=== PATIENT | male | born 1990 | race African-American/Black ===

== ENCOUNTER 2021-08-31 22:46 | Emergency (ER) | payer SELFPAY ==
[~2021-08-31] VITALS: Ht 188 cm; Wt 95.3 kg
--- NOTE | 2021-08-31 23:05 | NUR ---
PT BIBSELF FROM HOME C/O 910 HEADACHE, NECK, AND LOWER BACK PAIN X2 WEEKS. NO TRAUMA REPORTED. PT A/OX3. TOLERATING R/A WELL WITH NO SOB.
--- NOTE | 2021-08-31 23:22 | NUR ---
PT SEEN BY DR. REED
--- NOTE | 2021-08-31 23:38 | NUR ---
LAC #20G S/L; PATENT AND INTACT.
--- NOTE | 2021-09-01 00:21 | NUR ---
PT RETURNED TO ER BED [address]
[2021-09-01 00:28] LABS: BILIRUBIN,URINE NEGATIVE (NEGATIVE); COLOR,URINE YELLOW (YELLOW); LEUKOCYTE ESTERASE ,URINE NEGATIVE (NEGATIVE); NITRITE, URINE NEGATIVE (NEGATIVE); PH,URINE 6.5 (5.0-8.0); PROTEIN,URINE NEGATIVE (NEGATIVE); UGLUCOSE NEGATIVE (NEGATIVE)
[2021-09-01 00:35] LABS: BASOPHILS % (AUTO) 0.3 % (0.0-2.0); EOSINOPHILS % (AUTO) 1.4 % (0.0-6.0); HEMATOCRIT 42 % (39-51); HEMOGLOBIN 13.9 g/dL (13.5-17.5); LYMPHOCYTES # (AUTO) 1.7 K/uL (0.8-4.8); LYMPHOCYTES % (AUTO) 29.3 % (20.0-44.0); MEAN CORPUSCULAR HGB CONC 33 g/dl (31.0-36.0); MEAN CORPUSCULAR VOLUME 86 fL (80-96); MONOCYTES # (AUTO) 0.5 K/uL (0.1-1.30); MONOCYTES % (AUTO) 8.3 % (2.0-12.0); NEUTROPHILS # (AUTO) 3.6 K/uL (1.8-8.9); NEUTROPHILS % (AUTO) 60.7 % (43.0-81.0); PLATELET COUNT (AUTO) 303 K/uL (150-450); RED BLOOD CELL COUNT(AUTO) 4.83 MIL/uL (4.5-6.0)
[2021-09-01 00:45] LABS: SERUM AMMONIA 36 umol/L (11-32)
[2021-09-01 00:50] LABS: CALCIUM, SERUM 8.5 mg/dL (8.5-10.1); CARBON DIOXIDE 28 mmol/L (21-32); CHLORIDE 100 mmol/L (98-107); GLUCOSE 90 mg/dL (74-106); POTASSIUM 3.8 mmol/L (3.5-5.1); SODIUM SERUM 136 mmol/L (136-145); UREA NITROGEN, BLOOD 13 mg/dL (7-18)
[2021-09-01 00:58] LABS: ALANINE AMINOTRANSFERASE 34 U/L (12-78); ALBUMIN 3.8 g/dL (3.4-5.0); ALKALINE PHOSPHATASE 90 U/L (46-116); ASPARTATE AMINOTRANSFERASE 34 U/L (15-37); BILIRUBIN,DIRECT 0.1 mg/dL (0.0-0.2); BILIRUBIN,TOTAL 0.5 mg/dL (0.2-1.0); TOTAL PROTEIN, SERUM 7.9 g/dL (6.4-8.2)
[2021-09-01 01:06] LABS: ACETAMINOPHEN 0 ug/ml (10-30); ALCOHOL, BLOOD < 3 mg/dL (0-0)
[2021-09-01 01:37] LABS: THYROID STIMULATING HORMONE 0.967 uIU/mL (0.358-3.74)
--- NOTE | 2021-09-01 03:52 | NUR ---
Written and verbal after care instructions given. Patient verbalizes understanding of instruction.DC paper work signed. Awaiting transportation for D/C
--- NOTE | 2021-09-01 04:31 | NUR ---
Patient discharged to home in stable condition. Written and verbal after care instructions given. Patient verbalizes understanding of instruction. PT ambulatory with a steady gait
[2021-09-01 04:33] VITALS: BP 129/86
--- NOTE | 2021-09-01 04:33 | NUR ---
IV removed. Catheter intact and site benign. Pressure and 4x4 applied to site. No bleeding noted.
== END 2021-09-01 04:34 | disposition home or self-care (01) ==
LOC: ER 22:54
DX: R51.9 Headache, unspecified (principal); M54.2 Cervicalgia; J45.909 Unspecified asthma, uncomplicated; F17.200 Nicotine dependence, unspecified, uncomplicated
CPT/HCPCS: 36415; 70450-TC; 80048-TC; 80076-TC; 82140-TC; 84443-TC; 85025-TC; G0480